=== PATIENT | female | born 1995 | race Native Hawaiian/Other Pacific Islander ===

== ENCOUNTER 2020-12-21 16:01 | Emergency (ER) | payer SELFPAY ==
[~2020-12-21] VITALS: Ht 154.9 cm; Wt 111.4 kg
[2020-12-21] MEDS ORDERED: CLEOCIN HCL300 MG PO (18:24)
[2020-12-21] MEDS ORDERED: NORCO 325 MG-51 TAB PO (18:24)
[2020-12-21 19:30] VITALS: BP 134/78; PULSE 82; TEMP 98.1
== END 2020-12-21 19:30 ==
LOC: COL.ER 16:01
DX: K04.7 Periapical abscess without sinus (principal)